=== PATIENT | male | born 1935 | race Caucasian/White ===

== ENCOUNTER → 2017-12-03 | Outpatient (CLI) | payer MEDICARE, OTHER ==
[~2017-12-03] MED LIST: ACET-76 PO; ACET325T26 PO; AMIO200T42 PO; ASPI-496 PO; ATOR20TA PO; ATOR40TA78 PO; CARV6.252 PO; CHOL10002 PO; CYAN25009 PO; FURO20TA3 PO; GUAI120S17 PO; LEVO150T5 PO; LEVO175T5 PO; LEVO750T6 PO; MAGN300C PO; METF500T4 PO; POTA20PA25 PO; RAMI5CAP PO; SPIR25TA PO; TEST5GEL TP; TRAM50TA2 PO; UBID50CA3 PO; VIT1CAPS42 PO; [UNRECOGNIZED DRUG - OTHER]; [UNRECOGNIZED DRUG - OTHER]; misc; testosterone gel
== END | disposition home or self-care (01) ==
LOC: WOUND 13:14
PROVIDERS: ATTEND Podiatrist Foot & Ankle Surgery
DX: E11.621 Type 2 diabetes mellitus with foot ulcer (principal); L97.411 Non-pressure chronic ulcer of right heel and midfoot limited to breakdown of skin; E11.40 Type 2 diabetes mellitus with diabetic neuropathy, unspecified; I25.10 Atherosclerotic heart disease of native coronary artery without angina pectoris; E03.9 Hypothyroidism, unspecified; I25.2 Old myocardial infarction
CPT/HCPCS: 97597; G0463; WOU0463

== ENCOUNTER → 2017-12-10 | Outpatient (CLI) | payer MEDICARE, OTHER | END | disposition home or self-care (01) | LOC: WOUND 13:00 | PROVIDERS: ATTEND Podiatrist Foot & Ankle Surgery | DX: E11.621 Type 2 diabetes mellitus with foot ulcer (principal); L97.411 Non-pressure chronic ulcer of right heel and midfoot limited to breakdown of skin; E11.40 Type 2 diabetes mellitus with diabetic neuropathy, unspecified; I25.10 Atherosclerotic heart disease of native coronary artery without angina pectoris; E03.9 Hypothyroidism, unspecified; I25.2 Old myocardial infarction | CPT/HCPCS: G0463; WOU0463 ==

== ENCOUNTER → 2018-02-25 | Outpatient (CLI) | payer MEDICARE, OTHER | END | disposition home or self-care (01) | LOC: CFH 08:17 | PROVIDERS: ATTEND Physical Medicine & Rehabilitation | DX: M47.897 Other spondylosis, lumbosacral region (principal); Z85.72 Personal history of non-Hodgkin lymphomas; Z95.0 Presence of cardiac pacemaker | CPT/HCPCS: 72131 ==

== ENCOUNTER → 2018-12-27 | Outpatient (CLI) | payer MEDICARE, OTHER ==
[~2018-12-27] MED LIST changes: +METF500T17 PO; -METF500T4 PO; +OMNIPAQUE 350 MG/ML, 100ML BOTTLE ONE; -RAMI5CAP PO; +RAMI5CAP57 PO
== END | disposition home or self-care (01) ==
LOC: CFH 11:05
PROVIDERS: ATTEND Internal Medicine Hematology & Oncology
DX: J84.10 Pulmonary fibrosis, unspecified (principal); Q79.0 Congenital diaphragmatic hernia; N28.1 Cyst of kidney, acquired; K40.90 Unilateral inguinal hernia, without obstruction or gangrene, not specified as recurrent; M51.36 Other intervertebral disc degeneration, lumbar region; M47.816 Spondylosis without myelopathy or radiculopathy, lumbar region; R16.1 Splenomegaly, not elsewhere classified; C91.10 Chronic lymphocytic leukemia of B-cell type not having achieved remission; C83.10 Mantle cell lymphoma, unspecified site; Z95.0 Presence of cardiac pacemaker; Z87.891 Personal history of nicotine dependence
CPT/HCPCS: 71260; 74177; Q9967

== ENCOUNTER 2019-08-09 10:26 | Inpatient (IN) | payer MEDICARE, OTHER ==
[~2019-08-09] VITALS: Ht 175.3 cm; Wt 79.4 kg
[~2019-08-09 10:26] MED LIST changes: -OMNIPAQUE 350 MG/ML, 100ML BOTTLE ONE
--- NOTE | 2019-08-09 10:59 | NUR ---
PT TO ED FOR PROGRESSIVE SOB X1 MONTH. CPAP AT [facility]. 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 PT CONNECTED TO MONITORS. VSS. DR. OSUNA TO BS FOR ASSESSMENT AND ORDERS RECEIVED. AWAITING XR AND LAB DRAW.
[2019-08-09] MEDS ORDERED: ALLOPURINOL PO (11:06)
[2019-08-09] MEDS ORDERED: IBRU140C PO (11:06)
[2019-08-09] MEDS ORDERED: GABA300C10 PO (11:06)
[2019-08-09] MEDS ORDERED: FLONASE (11:06)
[2019-08-09] MEDS ORDERED: MIRA50TA PO (11:06)
[2019-08-09] MEDS ORDERED: [UNRECOGNIZED DRUG - OTHER] (11:06)
--- NOTE | 2019-08-09 11:33 | NUR ---
PT RESTING IN ROOM WITH FAMIYL AT BS. VSS. NO NEEDS EXRPESSED. CALL LIGHT WITHIN REACH. AWAITING LAB AND XR RESULTS.
[2019-08-09 11:43] LABS: MEAN CORPUSCULAR HEMOGLOBIN 34.6 pg (27.5-34.5); MEAN CORPUSCULAR HGB CONC 32.9 g/dL (33.2-36.2); MEAN CORPUSCULAR VOLUME 105.2 fL (81-97); MEAN PLATELET VOLUME 8.3 fL (7.4-10.4); PLATELET COUNT 133 x10^3/uL (130-400); RED BLOOD COUNT 2.41 x10^6/uL (4.38-5.82); RED CELL DISTRIBUTION WIDTH 19.3 % (9.4-14.8)
[2019-08-09 11:54] LABS: ALANINE AMINOTRANSFERASE 14 U/L (12-78); ALBUMIN 3.8 g/dL (3.4-5.0); ANION GAP 6 mmol/L (5-15); CALCIUM 8.5 mg/dL (8.5-10.1); CHLORIDE 106 mmol/L (98-107); CREATININE 1.29 mg/dL (0.7-1.3)
[2019-08-09 11:58] LABS: ALKALINE PHOSPHATASE 51 U/L (45-117); BILIRUBIN,TOTAL 1.2 mg/dL (0.2-1.0); TOTAL PROTEIN 7.4 g/dL (6.4-8.2); TROPONIN I < 0.015 ng/mL (0.000-0.045)
[2019-08-09 12:05] LABS: BASOPHILS # (AUTO) 0.02 x10^3/uL (0-0.1); BASOPHILS % (AUTO) 0 % (0-1); EOSINOPHILS # (AUTO) 0.03 x10^3/uL (0-0.4); EOSINOPHILS % (AUTO) 0 % (1-7); LYMPHOCYTES # (AUTO) 3.94 x10^3/uL (1-3.4); LYMPHOCYTES % (AUTO) 56 % (22-44); MD SCAN; MONOCYTES # (AUTO) 1.05 x10^3/uL (0.2-0.8); MONOCYTES % (AUTO) 15 % (2-9); NEUTROPHILS # (AUTO) 1.94 x10^3/uL (1.8-6.8); NEUTROPHILS % (AUTO) 28 % (42-75)
--- NOTE | 2019-08-09 12:10 | NUR ---
all results back at this time. chart up for recheck.
--- NOTE | 2019-08-09 13:01 | NUR ---
pt resting in room. vss. iv established. no needs expressed. call light within reach. awaiting ct.
--- NOTE | 2019-08-09 13:17 | NUR ---
pt to ct.
[2019-08-09] MEDS ORDERED: OMNIPAQUE 350 MG/ML, 100ML BOTTLE ONE (13:34)
--- NOTE | 2019-08-09 14:13 | NUR ---
pt resting in room. vss. no needs expressed. call light within reach. plan to admit. awaiting room assignment.
--- NOTE | 2019-08-09 15:06 | NUR ---
pt resting in room with family at bs. vss. no needs expressed. call light within reach. admit orders received. awaiting room assignment.
[2019-08-09] MEDS ORDERED: LABETALOL 5MG/ML, 20ML IVPush PRN (15:30)
[2019-08-09] MEDS ORDERED: ONDANSETRON ODT 4 MG PO PRN (15:30)
[2019-08-09] MEDS ORDERED: ONDANSETRON 2MG/ML, 2ML IVPush PRN (15:30)
[2019-08-09 15:45] LABS: TROPONIN I < 0.015 ng/mL (0.000-0.045)
--- NOTE | 2019-08-09 16:45 | NUR ---
report to nikkie sanchez. pt ready for transport.
[2019-08-09 16:56] VITALS: BP 145/77
[2019-08-09] MEDS ORDERED: ENOXAPARIN 40 MG/0.4 ML SQ SCH (17:00)
[2019-08-09 17:05] LABS: INTERNATIONAL NORMALIZED RATIO 1.15 (0.93-1.1)
[2019-08-09] MEDS ORDERED: CYANOCOBALAMIN 1,000 MCG/ML, 1ML IM ONE (19:30)
[2019-08-09] MEDS: FUROSEMIDE 20 MG/2 ML IV SCH (19:42)
[2019-08-09 20:13] VITALS: BP 127/58
[2019-08-09] MEDS: CARVEDILOL 6.25 MG TABLET PO SCH (20:53)
[2019-08-09] MEDS: ATORVASTATIN 40 MG TABLET PO SCH (20:53)
[2019-08-09] MEDS: GABAPENTIN 300 MG CAPSULE PO SCH (20:53)
[2019-08-09] MEDS ORDERED: AMIODARONE 200 MG TABLET PO SCH (21:00)
[2019-08-09 21:35] LABS: MICROSCOPIC AUTO
[2019-08-09 21:36] LABS: CULTURE INDICATED? YES
[2019-08-09 21:42] LABS: TROPONIN I < 0.015 ng/mL (0.000-0.045)
[2019-08-10] VITALS (10 sets, daily range): BP systolic 108–135; BP diastolic 61–69
[2019-08-10 04:27] LABS: BASOPHILS # (AUTO) 0.02 x10^3/uL (0-0.1); BASOPHILS % (AUTO) 0 % (0-1); EOSINOPHILS # (AUTO) 0.03 x10^3/uL (0-0.4); EOSINOPHILS % (AUTO) 0 % (1-7); LYMPHOCYTES # (AUTO) 3.37 x10^3/uL (1-3.4); LYMPHOCYTES % (AUTO) 54 % (22-44); MD NO; MEAN CORPUSCULAR HEMOGLOBIN 34.2 pg (27.5-34.5); MEAN CORPUSCULAR HGB CONC 32.6 g/dL (33.2-36.2); MEAN CORPUSCULAR VOLUME 104.8 fL (81-97); MONOCYTES # (AUTO) 0.88 x10^3/uL (0.2-0.8); MONOCYTES % (AUTO) 14 % (2-9); NEUTROPHILS # (AUTO) 1.91 x10^3/uL (1.8-6.8); NEUTROPHILS % (AUTO) 31 % (42-75); PLATELET COUNT 107 x10^3/uL (130-400); RED BLOOD COUNT 2.19 x10^6/uL (4.38-5.82); RED CELL DISTRIBUTION WIDTH 19.3 % (9.4-14.8)
[2019-08-10 04:34] LABS: ALANINE AMINOTRANSFERASE 12 U/L (12-78); ALBUMIN 3.3 g/dL (3.4-5.0); ANION GAP 5 mmol/L (5-15); CALCIUM 7.9 mg/dL (8.5-10.1); CHLORIDE 108 mmol/L (98-107); CREATININE 1.18 mg/dL (0.7-1.3)
[2019-08-10 04:45] LABS: ALKALINE PHOSPHATASE 39 U/L (45-117); BILIRUBIN,TOTAL 1.4 mg/dL (0.2-1.0); TOTAL PROTEIN 6.5 g/dL (6.4-8.2)
[2019-08-10] MEDS ORDERED: MAGNESIUM SULFATE PMX 2GM/50ML 50 ML IV ONE (07:30)
[2019-08-10] MEDS ORDERED: PANTOPRAZOLE 40 MG IV IVPush SCH (07:30)
[2019-08-10] MEDS ORDERED: AMIODARONE 200 MG TABLET PO SCH (09:00)
[2019-08-10] MEDS ORDERED: [UNRECOGNIZED DRUG - OTHER] PO (09:54)
[2019-08-10] MEDS ORDERED: AMIO100T4 PO (09:56)
[2019-08-10] MEDS: FUROSEMIDE 20 MG/2 ML IV SCH ×2 (10:31→17:01)
[2019-08-10] MEDS: GUAIFENESIN 200 MG TABLET PO SCH ×4 (10:32→20:04)
[2019-08-10] MEDS: ASPIRIN 81 MG TABLET EC PO SCH (11:25)
[2019-08-10] MEDS: SENNA/DOCUSATE TABLET PO SCH (11:26)
[2019-08-10] MEDS: CARVEDILOL 6.25 MG TABLET PO SCH ×2 (11:26→20:04)
[2019-08-10] MEDS: NEUTRA PHOS K 250 MG TABLET PO SCH ×3 (11:26→20:04)
[2019-08-10] MEDS: LEVOTHYROXINE 150 MCG TABLET PO SCH (11:27)
[2019-08-10] MEDS: GABAPENTIN 300 MG CAPSULE PO SCH ×2 (11:28→20:04)
[2019-08-10] MEDS ORDERED: IBRUTINIB 280 MG HOMEMEDPO SCH (17:00)
[2019-08-10] MEDS: ATORVASTATIN 40 MG TABLET PO SCH (20:04)
[2019-08-11 01:35] VITALS: BP 121/61
[2019-08-11] MEDS ORDERED: PANTOPROZOLE 40MG TABLET PO SCH (06:00)
[2019-08-11 06:21] LABS: MEAN CORPUSCULAR HGB CONC 33.1 g/dL (33.2-36.2); MEAN CORPUSCULAR VOLUME 102.6 fL (81-97); MEAN PLATELET VOLUME 7.9 fL (7.4-10.4); PLATELET COUNT 103 x10^3/uL (130-400); RED BLOOD COUNT 2.97 x10^6/uL (4.38-5.82); RED CELL DISTRIBUTION WIDTH 20.8 % (9.4-14.8)
[2019-08-11] MEDS: GUAIFENESIN 200 MG TABLET PO SCH ×2 (06:24→11:48)
[2019-08-11 06:27] LABS: ANION GAP 5 mmol/L (5-15); CALCIUM 8.7 mg/dL (8.5-10.1); CHLORIDE 103 mmol/L (98-107); CREATININE 1.36 mg/dL (0.7-1.3)
[2019-08-11 06:32] LABS: MD YES
[2019-08-11 06:38] LABS: <PLATELET ESTIMATE> DECREASED; <PLT MORPHOLOGY> NORMAL PLT MORPH; ANISOCYTOSIS 1+; BAND#(MANUAL) 0.23 x10^3/uL; BANDS%(MANUAL) 4 % (0-7); EOS#(MANUAL) 0.06 x10^3/uL (0.0-0.4); EOS% (MANUAL) 1 % (1-7); LYMPH#(MANUAL) 3.53 x10^3/uL (1-3.4); LYMPHS% (MANUAL) 62 % (22-44); METAMYELOCYTES# (MANUAL) 0.06 x10^3/uL (0-0); METAMYELOCYTES% (MANUAL) 1 % (0-1); MONOS#(MANUAL) 0.63 x10^3/uL (0.3-2.7); MONOS% (MANUAL) 11 % (2-9); POLYCHROMASIA 1+; SEGS% (MANUAL) 21 % (42-75)
[2019-08-11 08:31] VITALS: BP 136/71
[2019-08-11] MEDS: FUROSEMIDE 20 MG/2 ML IV SCH (08:34)
[2019-08-11] MEDS: NEUTRA PHOS K 250 MG TABLET PO SCH (08:34)
[2019-08-11] MEDS: SENNA/DOCUSATE TABLET PO SCH (08:34)
[2019-08-11] MEDS: ASPIRIN 81 MG TABLET EC PO SCH (08:35)
[2019-08-11] MEDS: CARVEDILOL 6.25 MG TABLET PO SCH (08:35)
[2019-08-11] MEDS: GABAPENTIN 300 MG CAPSULE PO SCH (08:41)
[2019-08-11] MEDS: LEVOTHYROXINE 150 MCG TABLET PO SCH (08:41)
[2019-08-11] MEDS ORDERED: POTA10CA PO (12:25)
[2019-08-11] MEDS ORDERED: FURO40TA6 PO (12:25)
[2019-08-12] MEDS ORDERED: AMIODARONE 200 MG TABLET PO SCH (09:00)
== END 2019-08-11 16:30 | disposition home or self-care (01) | DRG 291 ==
LOC: ED 13:43 → EDIP 14:49 → 5SO 16:54 → DCLOUNGE 08-11 16:10
PROVIDERS: ADMIT Family Medicine; ATTEND Hospitalist
PROC: 30233N1 Transfusion of Nonautologous Red Blood Cells into Peripheral Vein, Percutaneous Approach (ICD-10-PCS; principal; 2019-08-10)
DX: I11.0 Hypertensive heart disease with heart failure (principal); J96.21 Acute and chronic respiratory failure with hypoxia; C83.10 Mantle cell lymphoma, unspecified site; I50.23 Acute on chronic systolic (congestive) heart failure; D64.9 Anemia, unspecified; D69.6 Thrombocytopenia, unspecified; E03.9 Hypothyroidism, unspecified; E11.9 Type 2 diabetes mellitus without complications; E78.5 Hyperlipidemia, unspecified; I25.10 Atherosclerotic heart disease of native coronary artery without angina pectoris; I35.0 Nonrheumatic aortic (valve) stenosis; I42.9 Cardiomyopathy, unspecified; M10.9 Gout, unspecified; N40.0 Benign prostatic hyperplasia without lower urinary tract symptoms; Z82.49 Family history of ischemic heart disease and other diseases of the circulatory system; Z85.850 Personal history of malignant neoplasm of thyroid; Z87.891 Personal history of nicotine dependence; Z95.5 Presence of coronary angioplasty implant and graft; Z95.810 Presence of automatic (implantable) cardiac defibrillator; Z99.81 Dependence on supplemental oxygen; Z88.8 Allergy status to other drugs, medicaments and biological substances
CPT/HCPCS: 36415; 36430; 71045; 71275; 80048; 80053; 81001; 82607; 82728; 83540; 83550; 83735; 83880; 84100; 84439; 84443; 84484; 85025; 85610; 86850; 86900; 86923; 87077; 87086; 87186; 93005; G0378; J1650; Q9967; C9113; J1940; J3420; J3475; P9016

== ENCOUNTER 2019-08-30 09:39 | Outpatient (CLI) | payer MEDICARE, OTHER ==
[~2019-08-30 09:39] MED LIST changes: +ALLOPURINOL PO; +AMIO100T4 PO; +FLONASE; +FURO40TA6 PO; +GABA300C10 PO; +IBRU140C PO; +MIRA50TA PO; +POTA10CA PO; +[UNRECOGNIZED DRUG - OTHER]; +[UNRECOGNIZED DRUG - OTHER] PO
== END 2019-08-30 23:59 | disposition home or self-care (01) ==
LOC: CFH 09:39
PROVIDERS: ATTEND Internal Medicine Cardiovascular Disease
DX: I08.8 Other rheumatic multiple valve diseases (principal); I50.9 Heart failure, unspecified; Z87.891 Personal history of nicotine dependence; I25.2 Old myocardial infarction
CPT/HCPCS: 93306